=== PATIENT | male | born 1945 | race Caucasian/White ===

== ENCOUNTER 2020-09-16 11:30 | Emergency (ER) | payer MEDICARE, SELFPAY ==
[2020-09-16 11:32] VITALS: BP 197/90; PULSE 56; RESP 18; TEMP 36.6; O2SAT 100; BMI 22.4
--- NOTE | 2020-09-16 11:49 | ECG_ITS ---
[facility] Test Date: 2020-09-16 Pat Name: Cecilio Hernandes Department: Room: Gender: Male Second [employer] Machine: : 1945 Requested By: Sherri Castañeda Order Number: [id number] Risa MD: Katy Hough M.D. Measurements Intervals [place] Rate: 66 P: 62 [place]: 176 QRS: 59 QRSD: 98 T: 70 QT: 417 QTc: 439 Interpretive Statements SINUS RHYTHM WITH OCCASIONAL VENTRICULAR PREMATURE COMPLEXES WITH OCCASIONAL SUPRAVENTRICULAR PREMATURE COMPLEXES Compared to ECG 10/10/2017 12:24:14 Ventricular premature complex(es) now present Sinus tachycardia no longer present Electronically Signed On 09-16-2020 19:12:12 CERTIFIED NUTRITIONIST by Katy Hough M.D. [id number]
--- NOTE | 2020-09-16 12:08 | XR_ITS ---
WS: [id number] XR chest 1V portable [id number] REASON FOR EXAM: Near syncope FINDINGS: The chest is unchanged compared to previous examination of 10/03/2017. There is mild tortuosity of the thoracic aorta. The heart size is normal. 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 No definite acute pulmonary parenchymal or pleural abnormality is identifie d. XR/XR chest 1V portable [id number] IMPRESSION: No acute chest abnormality.
[2020-09-16 12:44] LABS: Basophils % 0.3 %; Eosinophils # 0.1 10^3/uL (0.0-0.8); Eosinophils % 0.5 %; Hematocrit 51.5 % (42.0-52.0); Hemoglobin 16.5 g/dL (11.7-16.6); Lymphocytes # 1.3 10^3/uL (0.8-4.8); Lymphocytes % 13.2 %; Mean Corpuscular Hemoglobin 31.7 pg (28.0-34.0); Mean Corpuscular Volume 98.8 fL (80-94); Mean Platelet Volume 9.7 fL (7.4-10.4); Monocytes # 0.8 10^3/uL (0.2-0.9); Monocytes % 7.9 %; Neutrophils % 77.8 %; Nucleated Red Blood Cells % 0 %; Platelet Count 157 10^3/cmm (130-400); Red Blood Count 5.21 10^6/uL (4.1-5.3); Red Cell Distribution Width 12.9 % (12.1-15.1); White Blood Count 9.6 10^3/uL (4.0-10.0)
--- NOTE | 2020-09-16 13:20 | ED_ITS ---
HPI - Dizziness General: Chief Complaint: Dizziness Stated Complaint: KRISTIN MONDRAGON Time Seen by Provider: 09/16/20 11:56 History of Present Illness: HPI Narrative: This patient is a 74-year-old gentleman who was sitting at the [facility] waiting for his to get her hair done. He suddenly became lightheaded, very pale, diaphoretic, confused. He was short of breath and noted to be breathing rapidly. His thought maybe he was hypoglycemic as this is sometimes happened to him. She gave him some water and some crackers and he improved a little bit but still is not feeling well. He describes the way he is feeling as apprehensive . He denies chest pain. He did not note any irregular heartbeat or chest pain. He had some nausea which is now passed. He is really pretty healthy and does not take any regular prescription medications. He does take supplements but had not taken any of them yet this morning. He had some sugary cereal for breakfast this morning at about 7 and then 2 cups of black coffee. Apparently this is not unusual for him but his notes that breakfast was a little bit earlier than usual. He has not been sick or had any other complaints over the past several days. No exposures to Covid that he is aware of. MD elicited complaint: lightheadedness and near syncope Onset (ago): hour(s) (1) Severity: severe Description: near-syncope History of similar symptoms: Yes (Much less severe) Relieving factors: nothing Associated symptoms: Denies chest pain, chills or malaise Associated neuro symptoms: Reports confusion; Deny difficulty speaking, dysphagia, diplopia, extremity weakness, facial numbness, facial weakness, gait changes, numbness in extremities or visual changes Review of Systems General: Reports: 10 or more systems reviewed and unremarkable except in HPI and below Const: Denies: fever(s), chills, fatigue or malaise Eyes: Denies: change in vision ENMT: Denies: odynophagia Card: Denies: chest pain or swelling of feet/ankles Resp: Denies: dyspnea, productive cough or non-productive cough GI: Denies: dysphagia : Denies: flank pain Musc: Denies: neck pain or back pain Skin/Breast: Denies: rash Neuro: Reports: confusion; Denies: numbness in extremities Acosta/Lymph: Denies: easy bruising or easy bleeding Physical Exam Const: COMMON NORMALS: no acute distress, patient oriented x3, no limitations and alert GENERAL APPEARANCE: cooperative and comfortable HENMT: HEAD & SCALP: normal to inspection FACE & SINUS: normal facial exam Eye: GENERAL EYE: appearance normal, both eyes and all related structures Neck/C-Spine: COMMON NORMALS: supple, no meningeal signs and no JVD Chest: COMMONS NORMALS: normal inspection of the chest Resp: COMMON NORMALS: normal respiratory effort, No use of accessory muscles and clear to auscultation bilaterally AUSCULTATION: clear to auscultation bilaterally Cardio: COMMON NORMALS: no JVD, regular rate and No murmurs present (Cardio) RATE: regular rate RHYTHM: abnormal rhythm with ectopic beats GI: COMMON NORMALS: Normal to inspection, nondistended, normoactive bowel sounds present, Soft to palpation and non-tender INSPECTION: Yes normal to inspection AUSCULTATION: Yes normoactive bowel sounds PALPATION: Yes Soft to palpation Back/Pelvis: COMMON NORMALS: thoracic and lumbar spine normal to inspection Extremity: COMMON NORMALS: normal to inspection Neuro: COMMON NORMALS: patient oriented x3, moves all extremities, no focal motor deficits and no sensory deficits noted SENSORIUM/ORIENTATION: Yes alert MENINGEAL SIGNS: Yes no meningeal signs Psych: COMMON NORMALS: mental status grossly normal, cooperative and normal affect Skin: COMMON NORMALS: no rashes or lesions noted and turgor normal GENERAL SKIN EXAM: no rashes or lesions noted and turgor normal Course ED course: This patient had a near syncopal episode. He is having multiple PVCs on the monitor. Looking back at prior records he has had these for some time. Through most of his stay they were consistently about every 6 or 7 beats. When he first came in however they were more frequent and in couplets. I discussed with he and his that it is concerned he may have had an arrhythmia. I recommended that we keep him in the hospital for monitoring. He did not want a stay in the hospital. We discussed that an arrhythmia could be a fatal episode. He agrees to return if he has any further episodes like he had today. He understands the risk of leaving without completing evaluation. I did arrange for him to have a Holter monitor. His seem to feel that this was excessive and unnecessary so hopefully he will complete this. He understands that he is welcome to return for further evaluation. Vital Signs: Vital signs: Vital Signs Temperature 97.9 F 09/16/20 11:32 Pulse Rate 67 09/16/20 16:29 Respiratory Rate 22 H 09/16/20 16:29 Blood Pressure 146/80 09/16/20 16:29 Pulse Oximetry 97 09/16/20 16:29 MDM - Dizziness Lab Data: Labs: Lab Results 09/16/20 09/16/20 09/16/20 Range/Units 12:33 12:33 12:33 WBC 9.6 (4.0-10.0) 10^3/ uL RBC 5.21 (4.1-5.3) 10^6/u L Hgb 16.5 (11.7-16.6) g/dL Hct 51.5 (42.0-52.0) % MCV 98.8 H (80-94) fL MCH 31.7 (28.0-34.0) pg MCHC 32.0 (30.0-36.0) g/dL RDW 12.9 (12.1-15.1) % Plt Count 157 (130-400) 10^3/c mm MPV 9.7 (7.4-10.4) fL Neut % (Auto) 77.8 % Lymph % (Auto) 13.2 % Anson % (Auto) 7.9 % Eos % (Auto) 0.5 % Baso % (Auto) 0.3 % Neut # (Auto) 7.50 (1.8-7.7) 10^3/u L Lymph # (Auto) 1.3 (0.8-4.8) 10^3/u L Anson # (Auto) 0.8 (0.2-0.9) 10^3/u L Eos # (Auto) 0.1 (0.0-0.8) 10^3/u L Baso # (Auto) 0.0 (0.0-0.1) 10^3/u L Nucleated RBC % (a uto) 0 % Nucleated RBCs # 0.0 /100WBC D-Dimer Cancelled Sodium Cancelled Potassium Cancelled Chloride Cancelled Carbon Dioxide Cancelled Anion Gap Cancelled BUN Cancelled Creatinine Cancelled GFR Calculation Cancelled Glucose Cancelled Calculated Osmolal ity Cancelled Calcium Cancelled Magnesium Cancelled Total Bilirubin Cancelled AST Cancelled ALT Cancelled Alkaline Phosphata se Cancelled Troponin T Baselin e Troponin T 120 Min rosita (0-15) ng/L Delta Troponin T (0-10) ABS# Total Protein Cancelled Albumin Cancelled Globulin Cancelled Urine Color (Yellow) Urine Appearance (CLEAR) Urine pH (5-7) Ur Specific Gravit y (1.005-1.030) Urine Protein (Negative) Urine Glucose (UA) (Normal) Urine Ketones (Negative) Urine Blood (Negative) Urine Nitrate (Negative) Urine Bilirubin (Negative) Urine Urobilinogen (Negative) mg/dL Ur Leukocyte Izabela ase (Negative) Urine RBC (0-2) /hpf Urine WBC (0-5) /hpf Ur Squamous Epith Cells (0-5) /hpf Amorphous Sediment Urine Bacteria (NONE) /hpf 09/16/20 09/16/20 09/16/20 Range/Units 12:33 13:27 13:27 WBC (4.0-10.0) 10^3/ uL RBC (4.1-5.3) 10^6/u L Hgb (11.7-16.6) g/dL Hct (42.0-52.0) % MCV (80-94) fL MCH (28.0-34.0) pg MCHC (30.0-36.0) g/dL RDW (12.1-15.1) % Plt Count (130-400) 10^3/c mm MPV (7.4-10.4) fL Neut % (Auto) % Lymph % (Auto) % Anson % (Auto) % Eos % (Auto) % Baso % (Auto) % Neut # (Auto) (1.8-7.7) 10^3/u L Lymph # (Auto) (0.8-4.8) 10^3/u L Anson # (Auto) (0.2-0.9) 10^3/u L Eos # (Auto) (0.0-0.8) 10^3/u L Baso # (Auto) (0.0-0.1) 10^3/u L Nucleated RBC % (a uto) % Nucleated RBCs # /100WBC D-Dimer 0.44 Sodium Potassium Chloride Carbon Dioxide Anion Gap BUN Creatinine GFR Calculation Glucose Calculated Osmolal ity Calcium Magnesium Total Bilirubin AST ALT Alkaline Phosphata se Troponin T Baselin e Cancelled 7 Troponin T 120 Min rosita (0-15) ng/L Delta Troponin T (0-10) ABS# Total Protein Albumin Globulin Urine Color (Yellow) Urine Appearance (CLEAR) Urine pH (5-7) Ur Specific Gravit y (1.005-1.030) Urine Protein (Negative) Urine Glucose (UA) (Normal) Urine Ketones (Negative) Urine Blood (Negative) Urine Nitrate (Negative) Urine Bilirubin (Negative) Urine Urobilinogen (Negative) mg/dL Ur Leukocyte Izabela ase (Negative) Urine RBC (0-2) /hpf Urine WBC (0-5) /hpf Ur Squamous Epith Cells (0-5) /hpf Amorphous Sediment Urine Bacteria (NONE) /hpf 09/16/20 09/16/20 09/16/20 Range/Units 13:27 14:02 16:25 WBC (4.0-10.0) 10^3/ uL RBC (4.1-5.3) 10^6/u L Hgb (11.7-16.6) g/dL Hct (42.0-52.0) % MCV (80-94) fL MCH (28.0-34.0) pg MCHC (30.0-36.0) g/dL RDW (12.1-15.1) % Plt Count (130-400) 10^3/c mm MPV (7.4-10.4) fL Neut % (Auto) % Lymph % (Auto) % Anson % (Auto) % Eos % (Auto) % Baso % (Auto) % Neut # (Auto) (1.8-7.7) 10^3/u L Lymph # (Auto) (0.8-4.8) 10^3/u L Anson # (Auto) (0.2-0.9) 10^3/u L Eos # (Auto) (0.0-0.8) 10^3/u L Baso # (Auto) (0.0-0.1) 10^3/u L Nucleated RBC % (a uto) % Nucleated RBCs # /100WBC D-Dimer Sodium 139 Potassium 4.5 Chloride 103 Carbon Dioxide 28 Anion Gap 12.5 BUN 12 Creatinine 1.0 GFR Calculation Not Reportable Glucose 130 H Calculated Osmolal ity 290 Calcium 9.0 Magnesium 2.3 Total Bilirubin 0.3 AST 18 ALT 18 Alkaline Phosphata se 81 Troponin T Baselin e Troponin T 120 Min rosita 7.93 (0-15) ng/L Delta Troponin T 0.93 (0-10) ABS# Total Protein 6.3 L Albumin 4.1 Globulin 2.2 Urine Color Straw (Yellow) Urine Appearance Clear (CLEAR) Urine pH 5 (5-7) Ur Specific Gravit y 1.010 (1.005-1.030) Urine Protein Neg (Negative) Urine Glucose (UA) Norm (Normal) Urine Ketones Negative (Negative) Urine Blood 2+ H (Negative) Urine Nitrate Negative (Negative) Urine Bilirubin Neg (Negative) Urine Urobilinogen Norm (Negative) mg/dL Ur Leukocyte Izabela ase Negative (Negative) Urine RBC 0-4 H (0-2) /hpf Urine WBC None (0-5) /hpf Ur Squamous Epith Cells 0-4 H (0-5) /hpf Amorphous Sediment Not Reportable Urine Bacteria Trace (NONE) /hpf Discharge Plan Discharge Patient Disposition: Home Clinical Impression: Near syncope, Frequent PVCs Condition: Stable Prescriptions: No Action No Known Home Medications RF: 0 Discharge Orders: Discharge Order (Routine); Ordered 09/16/20 Ordered By: Gabrielle Dalton Other Ambulatory Orders: ECG holter monitor 24 hour (Routine) Timeframe: 1 Week Facility: [facility] - Location: Cardiology Outpatients Ordered By: Garbielle Dalton Discharge Diet: Usual diet Discharge Activity: Limit activity as instructed Patient Instructions: Telemetry Monitoring (GEN), Near Syncope (ED) Activity Restrictions/Additional Instructions: Please return to the ER if you are having any further episodes. Please follow- up with your doctor without fail for further evaluation of the symptoms as they could be something life-threatening. We are ordering a patient monitor to be done as an outpatient. If you do not hear from someone tomorrow about setting up that test then please call the ER for further assistance. 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
[2020-09-16 13:59] LABS: Alanine Aminotransferase 18 U/L (0-41); Albumin Level 4.1 g/dL (3.5-5.2); Alkaline Phosphatase 81 IU/L (40-130); Anion Gap 12.5 (5-19); Aspartate Amino Transferase 18 U/L (0-40); Blood Urea Nitrogen 12 mg/dL (8-23); Carbon Dioxide 28 mmol/L (22-29); Chloride 103 mmol/L (98-107); Globulin 2.2 g/dL (1.3-4.6); Glucose 130 mg/dL (65-115); Magnesium 2.3 mg/dL (1.7-2.3); Osmolality Calculated 290 mOsm/kg (285-295); Potassium 4.5 mmol/L (3.5-5.1); Sodium 139 mmol/L (136-145); Total Bilirubin 0.3 mg/dL (0.15-1.2); Total Protein 6.3 g/dL (6.6-8.7)
[2020-09-16 14:01] LABS: Troponin(5th) Baseline 7 ng/L (0-15)
[2020-09-16 14:07] VITALS: BP 141/79; PULSE 63; RESP 21; O2SAT 94
--- NOTE | 2020-09-16 14:08 | ECG_ITS ---
[facility] Test Date: 2020-09-16 Pat Name: Cecilio Hernandes Department: Room: Gender: Male E Commerce Retailer: : 1945 Requested By: Gabrielle Ronquillo Order Number: [id number] Risa MD: Katy Hough M.D. Measurements Intervals [place] Rate: 68 P: 52 ND: 183 QRS: 37 QRSD: 93 T: 68 QT: 404 QTc: 431 Interpretive Statements SINUS RHYTHM WITH FREQUENT VENTRICULAR PREMATURE COMPLEXES Compared to ECG 09/16/2020 12:00:21 No significant changes Electronically Signed On 09-16-2020 19:29:49 SHOE SINGER by Katy Hough M.D. [email or web address]/store/[id number]
[2020-09-16 14:25] LABS: D Dimer 0.44 ug/mIFEU (0-0.59)
[2020-09-16 14:33] LABS: Add Urine Microscopic? YES; Bilirubin Urine Neg (Negative); Blood Urine 2+ (Negative); Glucose Urine UA Norm (Normal); Ketones Urine Negative (Negative); Leukocyte Esterase Urine Negative (Negative); Nitrate Urine Negative (Negative); Protein Urine Neg (Negative); Urine Appearance Clear (CLEAR); Urine Color Straw (Yellow); Urobilinogen Urine Norm (Negative); pH Urine 5 (5-7)
[2020-09-16 14:49] LABS: Add Urine Culture? No; Bacteria Urine TRACE /hpf; RBC Urine 0-4 /hpf (0-2); Squamous Epithelial Cell Urine 0-4 /hpf (0-5)
[2020-09-16 15:53] VITALS: BP 146/80; PULSE 71; RESP 23; O2SAT 98
[2020-09-16 16:29] VITALS: BP 146/80; PULSE 67; RESP 22; O2SAT 97
--- NOTE | 2020-09-16 16:29 | PC.NURSE ---
pt and spouse upset at the amount of wait time they are in ER. ED provider notified and in room to speak with them. Pt and spouse allowed nurse to draw troponin but wanted to be discharged. agreed to call ER back later to obtain results.
[2020-09-16 17:02] LABS: Troponin 5 2HR 7.93 ng/L (0-15); Troponin 5 2HR Delta 0.93 ABS# (0-10)
--- NOTE | 2020-09-18 14:23 | DCPLANNER ---
Addendum entered by Rosalina De La Rosa 09/23/20 15:28: 09.23.20 assistant case manager attempted to contact patient about scheduling a 48 hour halter monitor, unable to speak with anyone at this time, and no voicemail box set up. Original Note: hvac project manager had message to schedule a 24 hour halter monitor for patient. hvac project manager called [phone] left voicemail for patient, to return case therapist phone call. hvac project manager needs to confirm who patient sees for primary care to send the results of the halter monitor to. hvac project manager also called [phone], assistant case manager was unable to speak with anyone at this time, and there was no voicemail box set up.
== END 2020-09-16 16:29 | disposition home or self-care (01) ==
PROVIDERS: Emergency Medicine; Emergency Provider Emergency Medicine
DX: R55 Syncope and collapse (principal); I49.3 Ventricular premature depolarization
CPT/HCPCS: 12345; 36415; 71045; 80053; 81001; 83735; 84484; 85025; 85378; 93005; 99283

== ENCOUNTER → 2022-05-02 09:41 | Outpatient (BNVA) | payer MEDICARE, SELFPAY | PROVIDERS: PCP Family Medicine; Visit Provider Internal Medicine Cardiovascular Disease | DX: I11.0 Hypertensive heart disease with heart failure (principal); I50.9 Heart failure, unspecified; I49.3 Ventricular premature depolarization; R55 Syncope and collapse; Z87.891 Personal history of nicotine dependence | CPT/HCPCS: 99204 ==

== ENCOUNTER → 2022-08-30 10:41 | Outpatient (BNVA) | payer MEDICARE, SELFPAY | PROVIDERS: PCP Family Medicine; Visit Provider Internal Medicine Cardiovascular Disease | DX: I11.0 Hypertensive heart disease with heart failure (principal); I50.30 Unspecified diastolic (congestive) heart failure; Z87.891 Personal history of nicotine dependence | CPT/HCPCS: 99214 ==